=== PATIENT | female | born 1940 | race Caucasian/White ===

== ENCOUNTER 2018-01-10 05:45 | Day surgery (SDC) | payer OTHER ==
[~2018-01-10 05:45] MED LIST: ASPIRIN81 MG; COREG CR10 MG; COZAAR50 MG; PROTONIX40 MG; RAYOS5 MG
== END 2018-01-10 13:00 | disposition home or self-care (01) ==
LOC: CIR.AMB 05:45
DX: M75.122 Complete rotator cuff tear or rupture of left shoulder, not specified as traumatic (principal); M13.812 Other specified arthritis, left shoulder; M75.22 Bicipital tendinitis, left shoulder; S46.212A Strain of muscle, fascia and tendon of other parts of biceps, left arm, initial encounter